=== PATIENT | female | born 1970 | race Two or more races ===

== ENCOUNTER → 2016-09-04 | Outpatient (CLI) | payer OTHER ==
--- NOTE | 2016-09-04 15:49 | XCELERA REPORT ---
[address] [address] Upper Extremity Arterial Evaluation Name: SHAUN CARIAS Age: 46 yrs Gender: Female : 1970 Patient Status: Outpatient Patient Location: Study Date: 09/04/2016 11:04 AM Procedure: A duplex scan of the upper extremity arteries was performed bilaterally. Reason For Study: LEFT SHOULDER PAIN Ordering Physician: JOSE FELIPE Performed By: Homar Westfall Measurements and Calculations Right Left Dist Brach A PSV 89.1 117.3 cm/sec Dist Rad A PSV 60.1 70.1 cm/sec Dist Ulnar A PSV 54.7 36.6 cm/sec Dist Brach A PSV 89.1 117.3 cm/sec Dist Rad A PSV 60.1 70.1 cm/sec Dist Ulnar A PSV 54.7 36.6 cm/sec Right Side Arterial Evaluation Normal velocity and multiphasic waveforms from the Common Carotid artery to the forearm vessels. 0 % stenosis noted. Left Side Arterial Evaluation Normal velocity and multiphasic waveforms from the Common Carotid artery to the forearm vessels. 0 % stenosis noted. Interpretation Summary No hemodynamically significant lesions in the bilateral upper extremities, on duplex imaging, at rest. : JOSE FELIPE, Kedar >
== END ==
LOC: SP 10:51
PROVIDERS: ATTEND Pediatrics
DX: M25.512 Pain in left shoulder (principal)
CPT/HCPCS: 93930